=== PATIENT | male | born 1960 | race Caucasian/White ===

== ENCOUNTER 2019-12-21 08:31 | Day surgery (SDC) | payer MEDICARE, MEDICAID ==
[2019-12-11 14:56] LABS: CLARITY,URINE CLEAR (Clear); COLOR,URINE YELLOW (Yellow); GLUCOSE, URINE NEGATIVE (Neg); KETONES,URINE NEGATIVE (Neg); LEUKOCYTE ESTERASE ,URINE NEGATIVE (Neg); NITRITES, URINE NEGATIVE (Neg); OCCULT BLOOD,URINE NEGATIVE (Neg); PH,URINE 6.5 (4.8-8.0); PROTEIN,URINE NEGATIVE (Neg); UROBILINOGEN,URINE 0.2 E.U/dL (0.2-1.0)
[2019-12-11 14:59] LABS: BASOPHILS # (AUTO) 0.1 X10'3 (0-0.2); BASOPHILS % (AUTO) 0.9 % (0-1); EOSINOPHILS # (AUTO) 0.2 X10'3 (0-0.9); EOSINOPHILS % (AUTO) 2.4 % (0-6); LYMPHOCYTES # (AUTO) 2.2 X10'3 (1.1-4.8); LYMPHOCYTES % (AUTO) 26.1 % (21-51); MEAN CORPUSCULAR HEMOGLOBIN 31.8 PG (27.0-31.0); MEAN CORPUSCULAR HGB CONC 34.5 g/dL (33.0-36.5); MEAN CORPUSCULAR VOLUME 92.2 FL (78-98); MONOCYTES # (AUTO) 0.8 X10'3 (0-0.9); NEUTROPHILS # (AUTO) 5.2 X10'3 (1.8-7.7); NEUTROPHILS % (AUTO) 61.6 % (42-75); PRE OP HEMATOCRIT 46.4 % (42.0-52.0); PRE OP PLATELET COUNT 256 X10'3 (140-440); RED BLOOD COUNT 5.04 X10'6 (4.70-6.10); RED CELL DISTRIBUTION WIDTH 13.2 % (11.5-14.5)
[2019-12-11 15:10] LABS: UA COLLECTION TYPE NON-SPECIFIED
[2019-12-11 15:13] LABS: ALBUMIN 3.7 G/DL (3.4-5.0); ALKALINE PHOSPHATASE 113 IU/L (46-116); BLOOD UREA NITROGEN 13 MG/DL (7-18); BUN/CREATININE RATIO 11.1 (5.4-32.0); CHLORIDE 105 MMOL/L (99-107); CREATININE 1.17 MG/DL (0.60-1.10); PRE OP ALT 48 U/L (30-65); PRE OP ANION GAP 9 (8-16); PRE OP AST 19 U/L (10-37); PRE OP BILIRUB, TOTAL 0.7 MG/DL (0.0-1.0); PRE OP GLUCOSE 108 MG/DL (70-104); PRE OP POTASSIUM 4.3 MMOL/L (3.4-5.1); PRE OP SODIUM 140 MMOL/L (135-145); TOTAL CARBON DIOXIDE 25.8 MMOL/L (24-32); TOTAL PROTEIN 7.5 G/DL (6.4-8.2); eGFR 64 ML/MIN
[2019-12-21] VITALS (12 sets, daily range): BP systolic 104–130; BP diastolic 61–87
[~2019-12-21] VITALS: Ht 182.9 cm; Wt 98.9 kg
[~2019-12-21 08:31] MED LIST: AMLO2.5T2 PO; BUPR200T2 PO; DIVA500T2 PO; HYDR-4353 PO; OMEP40CA13 PO; TRAZ-251 PO; albuterol 2.5 MG/3 ML nebule NEB ONE; cefazolin/dext.iso 2gm/50ml 100 ML IV ONE; famotidine 20mg tablet PO ONE; ringers solution, lacted 1,000 ML IV SCH
[2019-12-21] MEDS ORDERED: ringers solution, lacted 1,000 ML IV SCH (11:24)
[2019-12-21] MEDS ORDERED: labetalol 20mg/4ml (5mg/ml) syringe IV PRN (11:25)
[2019-12-21] MEDS ORDERED: fentaNYL/PF 50MCG/1 ML 2ML syringe IV PRN ×2 (11:25)
[2019-12-21] MEDS ORDERED: morphine 2 MG/ML inj. syringe IV PRN (11:25)
[2019-12-21] MEDS ORDERED: morphine 4 MG/ML inj SYRINge IV PRN (11:25)
[2019-12-21] MEDS ORDERED: ondansetron/PF 4mg/2ml inj IV PRN (11:25)
[2019-12-21] MEDS ORDERED: hydrALAZINE 20mg/ml inj. IV PRN (11:25)
[2019-12-21] MEDS ORDERED: BUPIVAcaine/PF 2.5 mg/ml (0.25%) 30ml vial ONE (11:34)
[2019-12-21] MEDS ORDERED: bacitracin 15gm ointment TP ONE (11:34)
[2019-12-21] MEDS ORDERED: fentaNYL/PF 50MCG/1 ML 2ML syringe ONE (11:51)
[2019-12-21] MEDS ORDERED: dexamethasone sod phosphate 10mg/ml inj ONE (11:51)
[2019-12-21] MEDS ORDERED: LIDOcaine 2% (20mg/ml) 5ml vial ONE (11:51)
[2019-12-21] MEDS ORDERED: sevoflurane 250ml liquid IH ONE (11:51)
[2019-12-21] MEDS ORDERED: propofol inj 20 ML IV ONE (11:51)
[2019-12-21] MEDS ORDERED: midazolam 2 mg/2 ml injection ONE (11:51)
[2019-12-21] MEDS ORDERED: ROPIVAcaine 0.5% (5mg/ml) 30ml vial ONE (11:52)
[2019-12-21] MEDS ORDERED: ondansetron/PF 4mg/2ml inj ONE (12:04)
--- NOTE | 2019-12-21 13:16 | NUR ---
RECEIVED VIA GURNEY ACCOMPANIED BY ANESTHESIOLOGIST DR MEJIAS, REPORT GIVEN. PT ASLEEP AT THIS TIME, NO COMPLAINT AT THIS TIME. DRESSING RLE WITH BRACE IN PLACE CDI. 20 GAUGE PIV L WRIST PATENT AND RUNNING LR AT 100 ML/HR. VSS, SKIN PINK AND WARM, GOOD CAP REFILL, GOOD PERIPHERAL PULSE, L PEDAL COVERED BY DRESSING. RESTING COMFORTABLY WITH LEG ELEVATED AND ICE APPLIED.
--- NOTE | 2019-12-21 14:46 | NUR ---
PT AWAKE ALERT WITH NO COMPLAINT OF PAIN AT THIS TIME. DRESSING RLE WITH BRACE IN PLACE CDI. 20 GAUGE PIV L WRIST DC/D CATH TIP INTACT. TOLERATING FLUIDS, FOOD, AMBULATES TO TOILET AND VOIDS. VSS, SKIN PINK AND WARM, GOOD CAP REFILL, GOOD PERIPHERAL PULSE, R PEDAL COVERED BY DRESSING. DISCHAGE INSTRUCTIONS GIVEN AND PT VERBALIZED UNDERSTANDING. TRANSPORTED VIA WHEELCHAIR TO SIG OTHER IN PRIVATE VEHICLE TO HOME.
== END 2019-12-21 14:46 | disposition home or self-care (01) ==
LOC: PAS 08:31
PROVIDERS: ATTEND Podiatrist Foot & Ankle Surgery
DX: M21.621 Bunionette of right foot (principal); F31.9 Bipolar disorder, unspecified; F41.9 Anxiety disorder, unspecified; G89.29 Other chronic pain; I10 Essential (primary) hypertension; F17.210 Nicotine dependence, cigarettes, uncomplicated; Z11.59 Encounter for screening for other viral diseases; Z79.899 Other long term (current) drug therapy; G89.18 Other acute postprocedural pain; Z98.890 Other specified postprocedural states; Z72.89 Other problems related to lifestyle
CPT/HCPCS: 28110; 36415; 64447; 64450; 73620; 76000; 80053; 81003; 82948; 85025; 93005; 94640; 94760; A6223; C1713; J1100; J2001; J2250; J2405; J2704; J3010; J3490; J7120; U0003; A4215; A4618; A6253; A6449; A7000; J2795